=== PATIENT | female | born 1985 | race Caucasian/White ===

== ENCOUNTER 2017-02-05 15:10 | Emergency (ER) | payer OTHER ==
[2017-02-05 18:43] LABS: HEMOGLOBIN 12.1 gm/dl (12.3-15.3); RED BLOOD COUNT 3.98 M/UL (4.00-5.10); WHITE BLOOD COUNT 7.8 K/UL (4.5-11.0)
[2017-02-05 19:01] LABS: BUN/CREATININE RATIO 18 (0-10)
== END 2017-02-05 19:40 | disposition home or self-care (01) ==
LOC: ER1 15:10
PROVIDERS: Physician Assistant
DX: O20.0 Threatened abortion (principal); Z3A.13 13 weeks gestation of pregnancy; O21.0 Mild hyperemesis gravidarum; Z87.891 Personal history of nicotine dependence
CPT/HCPCS: 36415; 76801; 80053; 81001; 84702; 85025; 86900; 86901; 87086; 99284

== ENCOUNTER 2017-02-15 04:05 | Inpatient (IN) | payer OTHER ==
[~2017-02-15] VITALS: Ht 167.6 cm; Wt 64.4 kg
[2017-02-15 06:59] LABS: HEMOGLOBIN 12.6 gm/dl (12.3-15.3); RED BLOOD COUNT 4.09 M/UL (4.00-5.10); WHITE BLOOD COUNT 10.6 K/UL (4.5-11.0)
[2017-02-15 07:18] LABS: BUN/CREATININE RATIO 6 (0-10)
[2017-02-15] MEDS ORDERED: AMOX TR-K CLV1 EAC4 PO (09:25)
[2017-02-15] MEDS ORDERED: PROMETHAZINE12.5 M1 PO (09:26)
[2017-02-15] MEDS ORDERED: ZOFRAN ODT8 MG PO (09:27)
[2017-02-15] MEDS ORDERED: DOC-Q-LACE100 MG PO (09:28)
[2017-02-15] MEDS ORDERED: BUPRENORPHINE HC8 MG SL (09:29)
[2017-02-16 05:24] LABS: HEMOGLOBIN 10.8 gm/dl (12.3-15.3)
[2017-02-16 05:30] LABS: RED BLOOD COUNT 3.57 M/UL (4.00-5.10)
[2017-02-16 05:55] LABS: BUN/CREATININE RATIO 13 (0-10)
== END 2017-02-17 12:44 | disposition home or self-care (01) | DRG 781 ==
LOC: ER1 04:05 → MED SURG 4 07:34 → ZEROF 07:34 → MED SURG 4 14:30
PROVIDERS: Family Medicine; ADMIT Obstetrics & Gynecology
DX: O98.811 Other maternal infectious and parasitic diseases complicating pregnancy, first trimester (principal); O99.321 Drug use complicating pregnancy, first trimester; F11.20 Opioid dependence, uncomplicated; K04.7 Periapical abscess without sinus; Z3A.13 13 weeks gestation of pregnancy
CPT/HCPCS: 36415; 80048; 80053; 85025; 85027; 87040; 99283; G0378; J0295; J0696; J0780; J2270; J2405; J7050; J7120